=== PATIENT | female | born 1980 | race Caucasian/White ===

== ENCOUNTER → 2020-05-18 19:43 | Outpatient (CLI) | payer BC, SELFPAY ==
--- NOTE | 2020-05-18 19:52 | US_ITS ---
STUDY: ULTRASOUND OF THE FEMALE PELVIS - COMPLETE REASON FOR EXAM: Female, 40 years old. DUB Dysfunctional Uterine Bld US - Pelvic, Tvag LMP: 05/16/2020. TECHNIQUE: Transvaginal TECHNICAL QUALITY: Adequate. COMPARISON: None. FINDINGS: The uterus is retroverted and is in a midline position. The uterus measures 8.1 cm x 5.9 cm x 5.0 cm. There is a Nabothian cyst of the cervix. The endometrium measures 6 mm in thickness, and is hyperechoic. There is no demonstrated endometrial mass. There is no demonstrated myometrial mass. I.U.D. - The patient does not have an I.U.D. The right ovary is visualized. The right ovary measures 4 cm x 2 cm x 2 cm. There is no right ovarian cyst or ovarian mass. There is no visualized right adnexal mass or complex lesion. There is normal arterial and normal venous vascularity. The left ovary is visualized. The left ovary measures 3.6 cm x 2.9 cm x 2.6 cm. There is a 3 cm x 2.6 x 1.8 cm cyst. There is no visualized left adnexal mass or complex lesion. There is normal arterial and normal venous vascularity. There is no fluid in the cul-de-sac. US/Transvaginal Non- IMPRESSION: 3 cm x 2.6 cm x 1.8 cm left ovarian cyst. Electronically Signed: Tee Perez, at 9:13 EDT , Service support ,
== END ==
DX: N93.8 Other specified abnormal uterine and vaginal bleeding (principal); N83.202 Unspecified ovarian cyst, left side
CPT/HCPCS: 76830

== ENCOUNTER 2020-12-15 18:45 | Emergency (ER) | payer BC, SELFPAY ==
[2020-12-15 18:46] VITALS: BP 161/89; PULSE 80; RESP 16; TEMP 36.3; O2SAT 100; BMI 36.0
[2020-12-15] MEDS: MethylPREDNISolone 125 MG/2 ML Vial IV (19:14)
[2020-12-15] MEDS: DiphenhydrAMINE 50 MG/ML Syringe IV (19:14)
--- NOTE | 2020-12-15 19:14 | ED.DCSUM_ITS ---
- ER Visit Summary Date of Service: 12/15/20 Chief Complaint: Possible allergic reaction History of Present Illness: The patient is a 40 F who presents with possible allergic reaction that began today. Patient states that proximally 2 hours prior to arrival she noticed some redness and swelling of her face. Patient states this began rather suddenly. Patient states the redness appeared to be increased whenever she was active. Patient also admits to some generalized itching. Patient denies any difficulty swallowing. Patient admits to some intermittent shortness of breath. Patient also admits to a mild cough. Patient states she had her first COVID-19 vaccine yesterday. Patient states that with the [place] vaccine. Patient states this was approximately 9 AM yesterday morning (approximately 32 hours prior to arrival here). Physical Examination: All signs are stable. Patient is afebrile. Patient is in no acute distress. Oral mucosa is pink and moist. Oropharynx is clear. Airway is patent. Neck is supple. Trachea is midline. There is no JVD. Heart with regular rate and rhythm. Lungs are clear and equal bilaterally. Abdomen is soft. Bowel sounds are normal. There is no tenderness. Extremities are intact. There is no calf tenderness or edema. Skin is warm and dry. There is some slight erythema over the face. There are no vesicles or pustules noted. There are no petechia noted. There is no involvement of the mucous membranes. Emergency Department Course and Treatment: Patient was given Benadryl, Pepcid, and Solu-Medrol here. Patient is feeling better on reevaluation. While she was here in the emergency department, the patient remembered that she had her car detailed today. Patient states that while she was sitting in her car she noticed that when her breathing became worse. Patient was given a prescription for a short course of prednisone. Patient was instructed to follow-up with her primary care physician in 5 to 7 days. Patient understood and was agreeable with the plan. All questions were answered. Disposition: Discharge home Impression: 1. Allergic reaction This note was generated with [employer] dictation software. It may contain incorrect words, spelling, and punctuation that were not noted in review of the chart prior to signing ED Disposition - Plan for ED Patient: Disposition: Home or Assisted Living Diagnosis: Allergic reaction Instructions: ED General Allergic Reactions Prescriptions: predniSONE tablet 60 mg PO DAILY #15 tab Prescription Printed Referrals: [facility] Doctor,Out of [NON-STAFF] - 5-7 Days
[2020-12-15] MEDS: Famotidine 200 MG/20 ML MDV 20 MG in 0.9% Normal Saline (Pres. free 8 ML 300 MG IV (19:27)
[2020-12-15 19:45] VITALS: BP 148/78; PULSE 69; RESP 15; O2SAT 98
[2020-12-15 20:00] VITALS: BP 148/79; PULSE 69; RESP 15; O2SAT 98
[2020-12-15 21:05] VITALS: PULSE 65; RESP 14; O2SAT 98
== END 2020-12-15 21:16 | disposition home or self-care (01) ==
PROVIDERS: Emergency Provider Emergency Medicine
DX: T78.40XA Allergy, unspecified, initial encounter (principal); X58.XXXA Exposure to other specified factors, initial encounter
CPT/HCPCS: 96374; 96375; 99283; A4216; J3490

== ENCOUNTER 2020-12-17 19:38 | Emergency (ER) | payer BC, SELFPAY ==
[2020-12-17 19:39] VITALS: BP 146/80; PULSE 90; RESP 16; TEMP 36.7; O2SAT 99; BMI 36.0
--- NOTE | 2020-12-17 19:47 | ED.RN ---
NO OLD EKGS IN MUSE
--- NOTE | 2020-12-17 20:07 | EKG12_ITS ---
Test Reason : PALPITATIONS Blood Pressure : / mmHG Vent. Rate : 071 BPM Atrial Rate : 071 BPM P-R Int : 134 ms QRS Dur : 088 ms QT Int : 380 ms P-R-T Axes : 075 033 026 degrees QTc Int : 412 ms Normal sinus rhythm Normal ECG Confirmed by CORKY KAHN, JAZLYN ([id number]), slot editor YESIKA CEBALLOS ([id number]) on 12/19/2020 8:40:23 AM Referred By: SYLVIA Confirmed By:LESLEY FRIED MD
--- NOTE | 2020-12-17 20:10 | RAD_ITS ---
STUDY: X-RAY CHEST REASON FOR EXAM: Female, 40 years old. Chest pain TECHNIQUE: Frontal view COMPARISON: None. FINDINGS: The lungs are clear and expanded. There is no demonstrated pleural abnormality. Normal size heart. Normal mediastinum and shabnam. Normal visualized pulmonary arteries. Normal visualized aortic arch and descending thoracic aorta. Normal visualized thoracic spine. Normal visualized ribs, clavicles, and shoulders. There is no demonstrated abnormality of the visualized soft tissue structures of the upper abdomen. RAD/Chest 1 View (Portable) IMPRESSION: Normal x-ray examination of the chest. Electronically Signed: Asher Garland DO at 21:08 EDT Tel [phone], Service support ,
[2020-12-17 20:17] VITALS: O2SAT 98
[2020-12-17] MEDS: Ketorolac 15 MG/ML Vial IV (20:26)
[2020-12-17] MEDS: 0.9% Normal Saline 1,000 ML 1000 ML IV (20:26)
[2020-12-17] MEDS: LORazepam 2 MG/ML Syringe 1 MG IV (20:26)
[2020-12-17 20:29] LABS: Absolute Lymphocyte Count 1.48 X10^3/uL (0.83-4.51); Absolute Neutrophil Count 9.1 X10^3/uL (2.0-7.7); Basophil# 0.02 X10^3/uL; Basophil% 0.2 % (0-1); Hematocrit 44.6 % (37-47); Hemoglobin 14.8 g/dL (12.0-15.0); Lymphocyte # 1.48 X10^3/ul (0.83-4.51); Lymphocyte % 12.9 % (19-41); Mean Corp Hgb Conc 33.2 g/dL (32-36); Mean Corpuscular Hgb 29.8 pg (27.0-32.0); Mean Corpuscular Volume 89.7 fL (81-99); Mean Platelet Vol. 10.3 fl (6.2-12.0); Monocyte# 0.82 X10^3/uL; Monocyte% 7.2 % (0-10); NRBC Flagged by Analyzer 0 % (0-5); Neutrophil # 9.06 X10^3/uL (2.7-7.7); Neutrophil % 79.3 % (47-70); Platelet Count 368 K/mm3 (150-450); RBC Distribution Width CV 13.4 % (11.6-14.6); RBC Distribution Width SD 43.8 fl (35.1-43.9); Red Blood Count 4.97 M/mm3 (4.2-5.4); White Blood Count 11.4 K/mm3 (4.4-11.0)
--- NOTE | 2020-12-17 20:32 | ED.DCSUM_ITS ---
- ER Visit Summary Date of Service: 12/17/20 Chief Complaint: Chest pain and palpitations History of Present Illness: The patient is a 40 F with no local primary care physician. Reports that she used to live in [facility] and is now moved to [place]. States that she has palpitations began approximately 2 hours ago. Her heart rate feels irregular and it lasts minutes at a time. When this occurs she has a tightness to her chest. States pain is 4-10 at worst and 2 out of 10 currently. The palpitations do seem to be more frequent when she exerts herself. States that it is relieved by laying on her left side. She has nausea with this. She denies any diaphoresis or shortness of breath. Patient reports that she walked 6000 steps today and did not have any chest pain with this. Patient does report that 2 days ago she had an allergic reaction to some thing that was sprayed in her car when it was detailed. She is on day 3 of prednisone. And took 60 mg of prednisone at 9:00 this morning. Physical Examination: Vitals: Stable. Afebrile. General: Well-nourished and well-developed. Head: Normocephalic atraumatic. Neck: Supple, no lymphadenopathy. No JVD. Nontender. Cardiovascular: Regular rate and rhythm. No murmurs. Respiratory: No respiratory distress. Clear to auscultation bilaterally. Abdominal: Soft, nontender, nondistended, normal bowel sounds. No guarding, rebound, or peritoneal signs. Back: Nontender. Extremities: Nontender, no edema. Skin: Normal color, no rash. Neurologic: Alert and oriented ?3. Cranial nerves II through XII are intact. Normal strength and sensation. Psych: Normal affect. Test Results: EKG is sinus at 71 with T wave inversion in lead III. Troponin is negative. test is negative. TSH is 0.99. Magnesium is 2.1. Chem-7 shows a creatinine 1.04 and glucose 122. CBC shows a white count 11.4 with 79 segs neutrophils and 13 lymphocytes. She is on prednisone. Clinical Impression(s) from Imaging Studies Chest X-Ray 12/17/20 20:10 IMPRESSION: Normal x-ray examination of the chest. Electronically Signed: Asher Garland DO at 21:08 EDT Tel [phone], Service support , Emergency Department Course and Treatment: Patient had an IV placed. She was given a liter of normal saline. She was given Toradol IV. She was given dose of Ativan IV as well. Her rhythm is sinus on the monitor and from 70 1090. She does have occasional PACs and PVCs. Treatment Plan: I suspect that some of the patient's symptoms are due to the pr ednisone she is on. She is instructed to stop this. She will be discharged with instructions to follow-up with Dr. Tristan in 3 to 5 days for another exam. Return to the emergency department for any worsening symptoms. Disposition: To home in improved and stable condition. Impression: 1. Palpitations. This note was generated with [employer] dictation software. It may contain incorrect words, spelling, and punctuation that were not noted in review of the chart prior to signing ED Disposition - Plan for ED Patient: Instructions: ED Palpitations Referrals: Estee Brooke DO [STAFF PHYSICIAN] - 3-5 Days
[2020-12-17 20:45] LABS: Internal QC Validated? YES +Cl - CLEAR BKGD; Pregnancy, Serum, hCG Quali. NEGATIVE Negative
[2020-12-17 20:59] LABS: Anion Gap 6 (5-15); BUN 14 mg/dL (7-18); BUN/Creat Ratio 13.5 RATIO (10-20); Calcium,Total 9.4 mg/dL (8.5-10.1); Chloride 106 mmol/L (98-107); Creatinine, Serum 1.04 mg/dL (0.55-1.02); EST Glomerular Filtration Rate 62 mL/min (>60); Est Glom Filt Rate - Afr Amer 75 mL/min (>60); Estimated Creatinine Clearance 69.23 ml/min; Glucose 122 mg/dL (74-106); Magnesium 2.1 mg/dL (1.6-2.6); Potassium 3.6 mmol/L (3.5-5.1); Sodium Level 138 mmol/L (136-145); Thyroid Stim Hormone (TSH) 0.99 uIU/mL (0.358-3.74)
[2020-12-17 21:39] VITALS: BP 130/71; PULSE 62; RESP 14; O2SAT 99
== END 2020-12-17 21:40 | disposition home or self-care (01) ==
LOC: ED 20:40
PROVIDERS: Emergency Provider Emergency Medicine
DX: R00.2 Palpitations (principal)
CPT/HCPCS: 71045; 80048; 83735; 84443; 84484; 84703; 85025; 93005; 96361; 96374; 96375; 99285; J7030; A4216

== ENCOUNTER 2020-12-21 12:29 | Emergency (ER) | payer BC, SELFPAY ==
[2020-12-21 12:30] VITALS: BP 135/73; PULSE 65; RESP 16; TEMP 36.8; O2SAT 100; BMI 36.6
--- NOTE | 2020-12-21 12:45 | EKG12_ITS ---
Test Reason : Blood Pressure : / mmHG Vent. Rate : 070 BPM Atrial Rate : 070 BPM P-R Int : 140 ms QRS Dur : 084 ms QT Int : 386 ms P-R-T Axes : 054 039 009 degrees QTc Int : 416 ms Normal sinus rhythm Normal ECG Confirmed by CORKY KAHN, JAZLYN ([id number]), video effects editor YESIKA CEBALLOS ([id number]) on 12/22/2020 8:25:17 AM Referred By: BEATRIZ Confirmed By:LESLEY FRIED MD
--- NOTE | 2020-12-21 12:48 | ED.VISSUMM ---
- ER Visit Summary Date of Service: 12/21/20 Chief Complaint: Palpitations History of Present Illness: The patient is a 40 F who vaccination on the . Allergic reaction present in the ER. Over the weekend had palpitations had extensive work-up including CBC chemistry troponin TSH and other tests over all of which were unremarkable. She has been anxious and she had the Covid vaccination. Today had palpitations. No exertional chest pain. No cardiac history. No history of DVT or PE. No hemoptysis. No shortness of breath. No leg pain or swelling. Physical Examination: Well-appearing middle-aged female. Vital signs stable afebrile. Pulse ox 100% on room air no signs hypoxia. She does appear anxious. HEENT exam unremarkable. Neck nontender no lymphadenopathy. No thyromegaly. Lungs clear to auscultation bilaterally. Heart regular rhythm rate about 65 no murmur. Chest were nontender. Abdomen soft nontender. Normal bowel sounds no peritoneal signs. Patient moving all 4 extremities. Neurovascular intact. Calves are nontender without edema or cords. Neurologically she is awake alert with no focal motor deficits. Test Results: EKG shows sinus rhythm rate of 70 no acute signs of dysrhythmia, MA nor ischemia. I used the patient's most recent work-up that was unremarkable I do not feel that needs to be repeated. Clinically this appears to be anxiety induced. Repeat exam the patient is doing well at 1:41 PM and will be discharged home. Emergency Department Course and Treatment: Patient is anxious with palpitations. Exam otherwise is unremarkable. Heart rate is normal. EKG being obtained. Prior work-up reviewed and was negative. Treatment Plan: Anxiety reducing exercises. Disposition: Discharge Impression: Palpitations Acute anxiety This note was generated with [employer] dictation software. It may contain incorrect words, spelling, and punctuation that were not noted in review of the chart prior to signing ED Disposition - Plan for ED Patient: Referrals: LEONID BARRY [Other]
--- NOTE | 2020-12-21 13:42 | ED.DEP ---
ED Disposition - Plan for ED Patient: Disposition: Home or Assisted Living Instructions: ED Palpitations, ED Anxiety Reaction Referrals: LEONID BARRY [Other] - As Needed Additional Instructions: Your most recent laboratory work-up over the weekend was normal. Your EKG today is normal.
[2020-12-21 13:51] VITALS: BP 140/96; PULSE 70; RESP 15; O2SAT 100
== END 2020-12-21 13:52 | disposition home or self-care (01) ==
PROVIDERS: Emergency Provider Emergency Medicine; PCP Internal Medicine
DX: R00.2 Palpitations (principal); F41.9 Anxiety disorder, unspecified
CPT/HCPCS: 93005; 99284